=== PATIENT | female | born 2000 | race Caucasian/White ===

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

== ENCOUNTER → 2021-09-08 | Outpatient (REF) ==
[~2021-09-08] MED LIST changes: -CEFD1CAP8; +CEFD300C41
== END ==
LOC: M LABSMTC 09:34
PROVIDERS: ATTEND Family Medicine
DX: Z20.828 Contact with and (suspected) exposure to other viral communicable diseases (principal)

== ENCOUNTER → 2022-04-07 | Outpatient (REF) | LOC: M LABSMTC 10:06 | PROVIDERS: ATTEND Family Medicine | DX: Z11.52 Encounter for screening for COVID-19 (principal); Z20.822 Contact with and (suspected) exposure to COVID-19 ==

== ENCOUNTER → 2022-05-15 | Outpatient (REF) | payer OTHER | LOC: M LAB REF 22:09 | PROVIDERS: ATTEND Physician Assistant | DX: B34.9 Viral infection, unspecified (principal) ==

== ENCOUNTER → 2022-05-15 | Outpatient (REF) | LOC: M EMP 15:31 | PROVIDERS: ATTEND Family Medicine | DX: Z20.822 Contact with and (suspected) exposure to COVID-19 (principal) ==

== ENCOUNTER → 2022-09-03 | Outpatient (REF) | LOC: M EMP 08:33 | PROVIDERS: ATTEND Family Medicine | DX: Z20.828 Contact with and (suspected) exposure to other viral communicable diseases (principal) ==

== ENCOUNTER → 2023-01-11 | Outpatient (REF) | LOC: M EMP 07:57 | PROVIDERS: ATTEND Family Medicine | DX: Z20.822 Contact with and (suspected) exposure to COVID-19 (principal) ==

== ENCOUNTER → 2023-01-12 | Outpatient (REF) | LOC: M EMP 08:20 | PROVIDERS: ATTEND Family Medicine | DX: Z20.822 Contact with and (suspected) exposure to COVID-19 (principal) ==

== ENCOUNTER → 2023-04-29 | Outpatient (REF) | payer BC | LOC: M PLALAB 13:26 | PROVIDERS: ATTEND Advanced Practice Midwife | DX: Z12.4 Encounter for screening for malignant neoplasm of cervix (principal) ==

== ENCOUNTER → 2023-08-03 | Outpatient (REF) ==
[~2023-08-03] MED LIST changes: +CEFD1CAP9; -CEFD300C41
== END ==
LOC: M EMP 07:53
PROVIDERS: ATTEND Family Medicine
DX: Z11.52 Encounter for screening for COVID-19 (principal)

== ENCOUNTER → 2024-02-16 | Outpatient (REF) | payer BC ==
[2024-02-16 13:05] LABS: PERCENT SATURATION 26.2 % (13.2-45.0)
[2024-02-16 13:07] LABS: FERRITIN 194.6 NG/ML (7.3-270.7)
== END ==
LOC: M LAB REF 11:54
PROVIDERS: ATTEND Nurse Practitioner Family
DX: D56.9 Thalassemia, unspecified (principal)

== ENCOUNTER 2024-07-09 01:48 | Emergency (ER) | payer BC ==
[~2024-07-09] VITALS: Ht 160 cm; Wt 71.1 kg
[2024-07-09 02:42] LABS: BASO % 0.3 % (0.0-1.0); EOS # 0.1 10^3/uL (0.0-0.5); EOS % 1.4 % (0.0-3.0); HEMATOCRIT 33.4 % (36.0-47.0); HEMOGLOBIN 10.6 g/dl (12.0-15.5); LYMPH # 2.9 10^3/uL (1.5-5.0); LYMPH % 28.5 % (24.0-44.0); MEAN CORPUSCULAR HEMOGLOBIN 21.5 pg (27.0-33.0); MEAN CORPUSCULAR HGB CONC 31.7 g/dl (32.0-36.5); MEAN CORPUSCULAR VOLUME 67.6 fl (80.0-96.0); MONO # 0.6 10^3/uL (0.0-0.8); MONO % 5.9 % (2.0-8.0); NEUTROPHILS # 6.5 10^3/uL (1.5-8.5); NEUTROPHILS % 63.6 % (36.0-66.0); PLATELET COUNT, AUTOMATED 297 10^3/uL (150-450); RED BLOOD COUNT 4.94 10^6/uL (4.00-5.40); WHITE BLOOD COUNT 10.3 10^3/uL (4.0-10.0)
[2024-07-09] MEDS ORDERED: GABA-1172 PO (02:43)
[2024-07-09] MEDS ORDERED: CEPH500C PO (02:43)
[2024-07-09] MEDS ORDERED: LEVOTAB10 PO (02:43)
[2024-07-09] MEDS ORDERED: ONDA-282 PO (02:43)
[2024-07-09] MEDS ORDERED: CELE0.09 PO (02:43)
[2024-07-09] MEDS ORDERED: CYCL-707 PO (02:43)
[2024-07-09] MEDS: MORPHINE 2 MG/ML 1ML VIAL IV ONE ×2 (03:08→06:36)
[2024-07-09] MEDS: ONDANSETRON 4MG 2ML VIAL IV ONE (03:08)
[2024-07-09 03:17] LABS: BLOOD UREA NITROGEN 13 MG/DL (9-23); CARBON DIOXIDE LEVEL 27 MMOL/L (20-31); CHLORIDE LEVEL 105 MMOL/L (98-107); CREATININE FOR GFR 0.59 MG/DL (0.55-1.30); GLOMERULAR FILTRATION RATE > 60.0 (>60); GLUCOSE, FASTING 102 MG/DL (60-100); POTASSIUM SERUM 4.1 MMOL/L (3.5-5.1); SODIUM LEVEL 140 MMOL/L (136-145)
[2024-07-09 03:21] LABS: HCG, SERUM QUALITATIVE NEGATIVE (NEGATIVE)
[2024-07-09] MEDS ORDERED: ISOVUE-370 76% 100ML VIAL As Ordered ONE (03:32)
[2024-07-09] MEDS: MORPHINE 4 MG/ML 1ML VIAL IV ONE (04:03)
[2024-07-09] MEDS: CEPHALEXIN 500 MG CAP PO SCH (08:43)
[2024-07-09 15:25] VITALS: BP 120/66; TEMP 98.6; O2SAT 100
== END 2024-07-09 20:00 | disposition short-term general hospital (02) ==
LOC: M ED 01:48
DX: N64.89 Other specified disorders of breast (principal); Z98.82 Breast implant status
CPT/HCPCS: 71260; 80047; 80048; 84703; 85025; 85379; 93005; 99285; J2405; Q9967

== ENCOUNTER → 2025-05-10 | Outpatient (CLI) | payer BC ==
[~2025-05-10] MED LIST changes: +CELE0.09 PO; +CEPH500C PO; +CYCL-707 PO; +GABA-1172 PO; +LEVOTAB10 PO; +ONDA-282 PO
[2025-05-10 17:51] LABS: PLATELET COUNT, AUTOMATED 247 10^3/uL (150-450)
[2025-05-10 17:59] LABS: ALT/SGPT 10 U/L (7.0-40); AST/SGOT 10 U/L (<34); CALCIUM LEVEL 9.0 MG/DL (8.5-10.1); CARBON DIOXIDE LEVEL 26 MMOL/L (20-31); CHLORIDE LEVEL 102 MMOL/L (98-107); CREATININE FOR GFR 0.67 MG/DL (0.55-1.30); FREE T4 1.45 NG/DL (0.89-1.76); GLOMERULAR FILTRATION RATE > 90.0 (>60); POTASSIUM SERUM 4.0 MMOL/L (3.5-5.1); SODIUM LEVEL 139 MMOL/L (136-145)
[2025-05-16 15:57] LABS: HPV APTIMA Detected (Not Detected)
== END ==
LOC: M PLALAB 15:41
PROVIDERS: ATTEND Advanced Practice Midwife
DX: Z01.419 Encounter for gynecological examination (general) (routine) without abnormal findings (principal); N93.9 Abnormal uterine and vaginal bleeding, unspecified; R87.610 Atypical squamous cells of undetermined significance on cytologic smear of cervix (ASC-US)
CPT/HCPCS: 36415; 80053; 82652; 84402; 84403; 84439; 84443; 85027; 87624; G0123

== ENCOUNTER → 2025-07-25 | Outpatient (REF) | payer BC | LOC: M SFHCWAGY 15:16 | PROVIDERS: ATTEND Advanced Practice Midwife | DX: R87.610 Atypical squamous cells of undetermined significance on cytologic smear of cervix (ASC-US) (principal); R87.810 Cervical high risk human papillomavirus (HPV) DNA test positive ==